=== PATIENT | female | born 1980 | race Caucasian/White ===

== ENCOUNTER 2018-01-22 21:30 | Emergency (ER) | payer OTHER ==
[~2018-01-22] VITALS: Ht 170.2 cm; Wt 68.3 kg
[2018-01-22 21:34] VITALS: Ht 170.2 cm; Wt 68.3 kg
[2018-01-22] MEDS ORDERED: LIDOCAINE HCL 2% VISC SOLN 20 ML UDC PO STA (21:47)
[2018-01-22] MEDS ORDERED: ALUMINUM/MAGNESIUM SUSP 30 ML UDC PO STA (21:47)
[2018-01-22 22:25] LABS: BASO % 0.3 %; BASO ABS # 0.03 K/uL (0-0.2); EOS % 6.5 %; EOS ABS # 0.59 K/uL (0-0.5); HEMATOCRIT 38.1 % (37-47); HEMOGLOBIN 12.9 g/dL (12.0-16.0); IG# 0.02 K/uL (0.00-0.02); LYMPH % 31.9 %; LYMPH ABS # 2.89 K/uL (1.2-3.4); MEAN CELL VOLUME 87.8 fL (80-100); MEAN CORPUSCULAR HEMOGLOBIN 29.7 pg (25-34); MEAN CORPUSCULAR HGB CONC 33.9 g/dl (32-36); MONO % 6.1 %; MONO ABS # 0.55 K/uL (0.11-0.59); NEUT ABS # 4.99 K/uL (1.4-6.5); PLATELET COUNT 249 K/uL (130-400); RED CELL DISTRIBUTION WIDTH CV 13.2 % (11.5-14.5); RED CELL DISTRIBUTION WIDTH SD 42.7 fL (36.4-46.3); WHITE BLOOD COUNT 9.07 K/uL (4.8-10.8)
[2018-01-22] MEDS ORDERED: SUCRALFATE 1 GM/10 ML UDC PO STA (22:44)
[2018-01-22 22:45] LABS: ALBUMIN 3.3 gm/dl (3.4-5.0); CREATININE 0.93 mg/dl (0.60-1.20); POTASSIUM 3.7 mmol/L (3.5-5.1)
[2018-01-22] MEDS ORDERED: FAMOTIDINE 20MG/5ML IV PUSH IV STA ×2 (22:51)
[2018-01-22 22:56] LABS: TOTAL PROTEIN 6.9 gm/dl (6.4-8.2)
[2018-01-22] MEDS ORDERED: MISCCAP80 PO (23:01)
[2018-01-22] MEDS ORDERED: APPLE CIDER VINEGAR PO (23:01)
[2018-01-22] MEDS ORDERED: SPIR25TA PO (23:01)
[2018-01-22] MEDS ORDERED: IBUP-1050 PO (23:01)
[2018-01-22] MEDS ORDERED: BCPILLS PO (23:01)
[2018-01-22] MEDS ORDERED: ONDA4TAB46 SL (23:01)
[2018-01-22 23:03] LABS: PTT PATIENT 23.1 SECONDS (21.0-31.0)
[2018-01-23] MEDS ORDERED: PANTOprazole SOD 40 MG TAB PO STA (00:01)
[2018-01-23] MEDS ORDERED: PANT40TA PO (00:11)
[2018-01-23 00:21] LABS: HEP C IGG 13 YRS+OLDER_RFLX NEG (NEG)
--- NOTE | 2018-01-23 00:49 | EMERGENCY ROOM VISIT NOTE ---
History First contact with patient: 21:37 Chief Complaint: ABDOMINAL PAIN Stated Complaint: ABDOMINAL PAIN Nursing Triage Summary: pt ambulatory to triage, states "abdominal pain, right in between where my ribs split. i've been to the doctor, they checked out my gall bladder. friday i had the same thing twice." pt associates n/v/d and headache. pt c/o upper abdominal pain radiating to the right. unable to get temp in triage History of Present Illness The patient is a 37 year old female who presents to the Emergency Room with complaints of intermittent epigastric pain that occasionally radiates to her right upper quadrant for the past 2 weeks with occasional nausea and vomiting and diarrhea. Symptoms are not constant. Patient states about a month ago she started paleo diet. 2 weeks later the symptoms started. Patient has a couple tablespoons of apple cider vinegar daily. She occasionally drinks coffee. Prior to her new diet, she used to eat carbohydrates and less acidic foods. No recent antibiotics. No well water. She saw the family care doctor the other day and had an ultrasound of her liver and gallbladder that was normal per patient. Patient denies chest pain, dyspnea, fever, chills, cough, congestion, blood or black in the stool or emesis, urinary symptoms, night sweats, weight loss. No recent travel. No alcohol use. No drug use. She does not smoke. No family history of inflammatory bowel disease. No new stressors. Patient kept a log of her diet for the past week and I did review this. Review of Systems An 10 system review of systems was completed with positives and pertinent negatives listed in the HPI. Past Medical/Surgical History None Social History Smoking Status: Never Smoker Smokeless Tobacco Use: No Alcohol Use: none Drug Use: none Marital Status: Housing Status: lives with family Occupation Status: employed Current/Historical Medications Scheduled Control Pills ( Control Pills), 1 TAB PO DAILY Pantoprazole (Protonix), 40 MG PO DAILY Probiotic Product (Probiotic), 1 CAP PO DAILY Spironolactone (Aldactone), 1 TAB PO DAILY [Apple Cider Vinegar], 1 DOSE PO DAILY Scheduled PRN Ibuprofen (Advil), 600-800 MG PO Q6H PRN for Pain Ondansetron Hcl (Zofran), 1 TAB SL Q8 PRN for Nausea Physical Exam Vital Signs Date Time Temp Pulse Resp B/P (MAP) Pulse Ox O2 Delivery O2 Flow Rate FiO2 01/22/18 22:44 37.3 72 18 113/76 99 Room Air 01/22/18 21:34 80 18 109/73 99 Room Air Physical Exam VITALS: Vitals are noted on the nurse's note and reviewed by myself. Vital signs stable. GENERAL: Pleasant female, in no acute distress, nondiaphoretic, well-developed well-nourished. SKIN: The skin was without rashes, erythema, edema, or bruising. There is no tenting of the skin. Capillary reflex less than 2 seconds. HEAD: Normocephalic atraumatic. EARS: External auditory canals clear, tympanic membranes pearly rodriguez without erythema or effusion bilaterally. EYES: Pupils equal round and reactive to light and accommodation. Conjunctivae without injection, sclerae without icterus. Extraocular movements intact. NOSE: Patent, turbinates without inflammation or discharge. MOUTH: Mucous membranes moist. Pharynx without erythema or exudate. Uvula midline. Airway patent. Tongue does not deviate. NECK: Supple without nuchal rigidity. No lymphadenopathy. No thyromegaly. Cervical spine is nontender. No JVD. HEART: Regular rate and rhythm without murmurs gallops or rubs. LUNGS: Clear to auscultation bilaterally without wheezes, rales or rhonchi. No retractions or accessory muscle use. ABDOMEN: Positive bowel sounds x 4. Normal tympanic percussion. Soft, minimally tender epigastric region, without masses or organomegaly. Valente sign negative. No guarding or rebound tenderness. No CVA tenderness MUSCULOSKELETAL: No muscle atrophy, erythema, or edema noted. NEURO: Patient was alert and oriented to person place and time. Normal sensation to light and sharp touch. No focal neurological deficits. Medical Decision & Procedures Laboratory Results 01/22/18 22:06 Red Blood Count 4.34, Mean Corpuscular Volume 87.8, Mean Corpuscular Hemoglobin 29.7, Mean Corpuscular Hemoglobin Concent 33.9, Mean Platelet Volume 12.0, Neutrophils (%) (Auto) 55.0, Lymphocytes (%) (Auto) 31.9, Monocytes (%) (Auto) 6.1, Eosinophils (%) (Auto) 6.5, Basophils (%) (Auto) 0.3, Neutrophils # (Auto) 4.99, Lymphocytes # (Auto) 2.89, Monocytes # (Auto) 0.55, Eosinophils # (Auto) 0.59, Basophils # (Auto) 0.03 01/22/18 22:06 Test 01/22/18 22:06 01/22/18 22:07 White Blood Count 9.07 K/uL (4.8-10.8) Red Blood Count 4.34 M/uL (4.2-5.4) Hemoglobin 12.9 g/dL (12.0-16.0) Hematocrit 38.1 % (37-47) Mean Corpuscular Volume 87.8 fL (80-100) Mean Corpuscular Hemoglobin 29.7 pg (25-34) Mean Corpuscular Hemoglobin Concent 33.9 g/dl (32-36) Platelet Count 249 K/uL (130-400) Mean Platelet Volume 12.0 fL (7.4-10.4) Neutrophils (%) (Auto) 55.0 % Lymphocytes (%) (Auto) 31.9 % Monocytes (%) (Auto) 6.1 % Eosinophils (%) (Auto) 6.5 % Basophils (%) (Auto) 0.3 % Neutrophils # (Auto) 4.99 K/uL (1.4-6.5) Lymphocytes # (Auto) 2.89 K/uL (1.2-3.4) Monocytes # (Auto) 0.55 K/uL (0.11-0.59) Eosinophils # (Auto) 0.59 K/uL (0-0.5) Basophils # (Auto) 0.03 K/uL (0-0.2) RDW Standard Deviation 42.7 fL (36.4-46.3) RDW Coefficient of Variation 13.2 % (11.5-14.5) Immature Granulocyte % (Auto) 0.2 % Immature Granulocyte # (Auto) 0.02 K/uL (0.00-0.02) Prothrombin Time 10.0 SECONDS (9.0-12.0) Prothromb Time International Ratio 1.0 (0.9-1.1) Activated Partial Thromboplast Time 23.1 SECONDS (21.0-31.0) Partial Thromboplastin Ratio 0.9 Anion Gap 7.0 mmol/L (3-11) Est Creatinine Clear Calc Drug Dose 82.1 ml/min Estimated GFR () 92.3 Estimated GFR (Non- 79.6 BUN/Creatinine Ratio 14.3 (10-20) Calcium Level 9.0 mg/dl (8.5-10.1) Magnesium Level 1.8 mg/dl (1.8-2.4) Total Bilirubin 0.5 mg/dl (0.2-1) Direct Bilirubin 0.1 mg/dl (0-0.2) Aspartate Amino Transf (AST/SGOT) 50 U/L (15-37) Alanine Aminotransferase (ALT/SGPT) 101 U/L (12-78) Alkaline Phosphatase 53 U/L (45-117) Total Protein 6.9 gm/dl (6.4-8.2) Albumin 3.3 gm/dl (3.4-5.0) Lipase 143 U/L (73-393) Thyroid Stimulating Hormone (TSH) 2.990 uIu/ml (0.300-4.500) Human Chorionic Gonadotropin, Qual NEG (NEG) Hepatitis B Surface Antigen NEG (NEG) Hepatitis C Antibody NEG (NEG) Urine Color YELLOW Urine Appearance CLEAR (CLEAR) Urine pH 8.5 (4.5-7.5) Urine Specific [place] 1.021 (1.000-1.030) Urine Protein NEG (NEG) Urine Glucose (UA) NEG (NEG) Urine Ketones NEG (NEG) Urine Occult Blood NEG (NEG) Urine Nitrite NEG (NEG) Urine Bilirubin NEG (NEG) Urine Urobilinogen NEG (NEG) Urine Leukocyte Esterase TRACE (NEG) Urine WBC (Auto) 1-5 /hpf (0-5) Urine RBC (Auto) 0-4 /hpf (0-4) Urine Hyaline Casts (Auto) 1-5 /lpf (0-5) Urine Epithelial Cells (Auto) >30 /lpf (0-5) Urine Bacteria (Auto) NEG (NEG) Date/Time Source Procedure Growth Status 01/22/18 23:02 Stool C.difficile Toxin B Gene (PCR) - Final No C. difficile toxin B gene detected Complete Medications Administered Medications (Trade) Dose Ordered Sig/Yajaira Route Start Time Stop Time Status Last Admin Dose Admin Lidocaine HCl (Viscous Lidocaine 2% Soln) 10 ml NOW STAT PO 01/22/18 21:47 01/22/18 21:50 DC 01/22/18 21:47 10 ML Al Hydroxide/Mg Hydroxide (Maalox Susp) 30 ml NOW STAT PO 01/22/18 21:47 01/22/18 21:50 DC 01/22/18 21:47 30 ML Sucralfate (Carafate Susp) 1 gm NOW STAT PO 01/22/18 22:44 01/22/18 22:45 DC 01/22/18 22:44 1 GM Famotidine (Pepcid 20mg Iv Push) 20 mg ONE STAT IV 01/22/18 22:51 01/22/18 22:52 DC 01/22/18 22:51 20 MG Pantoprazole Sodium (Protonix Tab) 40 mg NOW STAT PO 01/23/18 00:01 01/23/18 00:02 DC 01/23/18 00:08 40 MG ED Course Prior records/ancillary studies reviewed. Triage Nursing notes reviewed. Additional history obtained from family. The patient's history was concerning for abdominal pain. Differential diagnosis: Etiologies such as reflux, stool infection, appendicitis, diverticulitis, PUD, biliary pathology, UTI, pancreatitis, obstruction, mesenteric ischemia, aortic pathology, infections, inflammatory bowel disease, renal colic, as well as others were entertained. Physical examination findings: As above. ER treatment provided: GI cocktail, Carafate, Protonix, Pepcid On reassessment the patient felt better. Diagnostics interpreted by me: The labs revealed negative hCG. Stool culture pending. Mild LFT elevation and hepatitis panel sent neg [facility] Imaging studies: Ultrasound was reviewed from [place] from yesterday that showed a normal right upper quadrant ultrasound I obtain the records from [place] and did review them. Exam and history seem consistent with reflux. Patient symptoms started shortly after changing her diet to more acidic foods and high proteins. She also has been drinking apple cider vinegar. Patient felt better after being medicated as above. She is advised to take the Protonix for the next 2 weeks and Maalox and Zantac for breakthrough symptoms. She is advised to avoid acidic foods. She is advised if symptoms persist to follow-up with GI for further evaluation and treatment or the family care doctor in a few days or here in the ER sooner for abdominal pain, fevers, vomiting, black or blood in the stool, worsening signs or symptoms or as needed. By the evaluation outlined above emergent etiologies such as appendicitis, diverticulitis, PUD, biliary pathology, UTI, pancreatitis, obstruction, mesenteric ischemia, aortic pathology, infections, inflammatory bowel disease, renal colic, as well as others were deemed relatively unlikely. The pt informed about the findings as listed above. All questions were answered and pleased with the treatment. Return instructions were outlined and the patient was discharged in stable condition. Outpatient prescription management: Protonix Referral: The patient was referred back to their primary care physician and/or gastroneurology for follow-up in 2 to 3 days for a recheck of the current condition. Case reviewed with my attending The chart was completed utilizing [employer] Speech voice recognition software. Grammatical errors, random word insertions, pronoun errors, and incomplete sentences are an occassional consequence of this system due to software limitations, ambient noise, and hardware issues. Any formal questions or concerns about the content, text, or information contained within the body of this dictation should be directly addressed to the physician professional nursing assistant for clarification. Medical Decision As above Medication Reconcilliation Current Medication List: was personally reviewed by me Blood Pressure Screening Patient's blood pressure: Normal blood pressure Impression Primary Impression: Epigastric abdominal pain Departure Information Dispostion Home / Self-Care Condition GOOD Prescriptions Pantoprazole (Protonix) 40 Mg Tab 40 MG PO DAILY for 14 Days, #14 TAB Prov: Petrona Loomis .GRACIELA 01/23/18 Referrals Satinder Gee, [place] (PCP) Patient Instructions My [facility] Additional Instructions Protonix 40 m tablet daily for next 2 weeks. Take this on an empty stomach. Try Maalox or Zantac for breakthrough symptoms for reflux. Avoid large meals. Avoid acidic foods. Rest and drink plenty of fluids as tolerated. Continue current medications. Avoid strenuous activities and anything that worsens your pain. Resume normal activities once your symptoms resolve. Return to the ER immediately for worsening or persistent chest pain, abdominal pain, black or blood in your stools, vomiting, fevers, chest pains, difficulty breathing, worsening of your condition, or as needed. Follow up with your primary physician in 2-3 days for a recheck of your current condition. If your symptoms do not resolve after taking the Protonix then recommend seeing a tape librarian for further evaluation and treatment.
[2018-01-23 01:30] VITALS: BP 93/59; PULSE 60; TEMP 37; O2SAT 96
[2018-01-25 21:56] LABS: HEPATITIS A IGM TC 51813E NON-REACTIVE (NON-REACTIVE); HEPATITIS B CORE IGM TC51854R NON-REACTIVE (NON-REACTIVE)
== END 2018-01-23 01:31 | disposition home or self-care (01) ==
LOC: C.EDB 21:33
DX: R10.13 Epigastric pain (principal); R10.11 Right upper quadrant pain; R11.0 Nausea; R19.7 Diarrhea, unspecified; Z79.3 Long term (current) use of hormonal contraceptives; Z79.899 Other long term (current) drug therapy

== ENCOUNTER → 2018-03-13 | Day surgery (SDC) | payer OTHER ==
[2018-03-03 16:19] VITALS: Ht 170.2 cm; Wt 68.2 kg
[~2018-03-13] VITALS: Ht 170.2 cm; Wt 68.2 kg
[~2018-03-13] MED LIST: APPLE CIDER VINEGAR PO; BCPILLS PO; FENTANYL CITRATE INJ 50 MCG/1 ML 2 ML VIAL ONE; IBUP-1050 PO; LIDOCAINE HCL 2% 2 ML VIAL (20MG/ML) ONE; MIDAZOLAM HCL 1 MG/ML 2ML VIAL ONE; MISCCAP80 PO; ONDA4TAB46 SL; PROPOFOL IV EMULSION 10 MG/ML 20 ML VIAL IV ONE; SODIUM CHLORIDE 0.9% 500ML 500 ML IV ONE; SPIR25TA PO
--- NOTE | 2018-03-13 13:00 | Endo History and Physical ---
History & Physical Date of Service: Mar 13, 2018. Chief Complaint: Abdominal pain, diarrhea Referring Physician: Dr. Gee History of Present Illness 37 yo CF who presents for EGD and colonoscopy secondary to abdominal pain and diarrhea. Past Surgical History Hx Cardiac Surgery: No Hx Internal Defibrillator: No Hx Pacemaker: No Hx Abdominal Surgery: No Hx of Implantable Prosthesis: No Hx Post-Op Nausea and Vomiting: No Hx Cancer Surgery: No Hx Thoracic Surgery: No Hx Orthopedic: No Hx Urinary Tract Surgery: No Family History None Social History Smoking Status: Never Smoker Hx Substance Use: No Hx Alcohol Use: Yes (rarely) Allergies Coded Allergies: No Known Allergies (Unverified , 03/13/18) Current Medications Reported Home Medications Medications Dose Route/Sig Max Daily Dose Days Date Category Zofran (Ondansetron HCl) Unknown Strength Tab 1 Tab SL Q8 PRN 01/22/18 Reported Advil (Ibuprofen) 200 Mg Tab 600-800 Mg PO Q6H PRN 01/22/18 Reported Probiotic (Probiotic Product) 1 Cap Cap 1 Cap PO DAILY 01/22/18 Reported Aldactone (Spironolactone) Unknown Strength Tab 1 Tab PO DAILY 01/22/18 Reported Control Pills (Miscellaneous) Tab 1 Tab PO DAILY 01/22/18 Reported Vital Signs Weight (Kilograms): 68.18 Height (Feet): 5 Height (Inches): 7 Date Time Temp Pulse Resp B/P (MAP) Pulse Ox O2 Delivery O2 Flow Rate FiO2 03/13/18 12:30 37 65 20 112/68 (83) 100 Room Air Physical Exam General Appearance: WD/WN, no apparent distress Respiratory/Chest: Auscultation: breath sounds normal Cardiovascular: Heart Auscultation: RRR Abdomen: Bowel Sounds: normal Inspection & Palpation: soft, non-distended, no tenderness, guarding & rebound Assessment and Plan Assessment: 37 yo CF who presents for EGD and colonoscopy secondary to abdominal pain and diarrhea. Plan: Proceed with EGD and colonoscopy.
--- NOTE | 2018-03-13 13:45 | GI REPORT ---
Patient Name: Luci Munoz Procedure Date: 03/13/2018 12:30 PM Date of : 1980 Admit Type: Outpatient Age: 37 Gender: Female Attending MD: Gregorio Enamroado DO Procedure: Colonoscopy Providers: Gregorio Enamorado DO Referring MD: Lila Farooq Indications: Generalized abdominal pain, Chronic diarrhea Medicines: Monitored Anesthesia Care Complications: No immediate complications. Estimated Blood Loss: Estimated blood loss: none. Procedure: Pre-Anesthesia Assessment: - Prior to the procedure, a History and Physical was performed, and patient medications and allergies were reviewed. The patient's tolerance of previous anesthesia was also reviewed. The risks and benefits of the procedure and the sedation options and risks were discussed with the patient. All questions were answered, and informed consent was obtained. Prior Anticoagulants: The patient has taken no previous anticoagulant or antiplatelet agents. ASA Grade Assessment: II - A patient with mild systemic disease. After reviewing the risks and benefits, the patient was deemed in satisfactory condition to undergo the procedure. After I obtained informed consent, the scope was passed under direct vision. Throughout the procedure, the patient's blood pressure, pulse, and oxygen saturations were monitored continuously. The Scope was introduced through the anus and advanced to the terminal ileum. The colonoscopy was performed without difficulty. The patient tolerated the procedure well. The quality of the bowel preparation was good. The terminal ileum, ileocecal valve, appendiceal orifice, and rectum were photographed. Findings: The perianal and digital rectal examinations were normal. The colon (entire examined portion) appeared normal. Several random biopsies were obtained with cold forceps for histology in the entire colon. Non-bleeding internal hemorrhoids were found during retroflexion. The hemorrhoids were small. Impression: - The entire examined colon is normal. - Non-bleeding internal hemorrhoids. - Several random biopsies were obtained in the entire colon. Recommendation: - Resume previous diet. - Continue present medications. - Repeat colonoscopy for surveillance based on pathology results. - Return to primary care physician as previously scheduled. Gregorio Enamorado DO 03/13/2018 1:45:15 PM This report has been signed electronically. Note Initiated On: 03/13/2018 12:30 PM Number of Addenda: 0 I attest to the content of the Intraoperative Record and orders documented therein, exceptions below {[id number]}
--- NOTE | 2018-03-13 13:47 | Discharge Instructions ---
Endoscopy Patient Instructions Date / Procedure(s) Performed Mar 13, 2018. Colonoscopy, EGD Allergy Information Coded Allergies: No Known Allergies (Unverified , 03/13/18) Discharge Date / Findings Mar 13, 2018. EGD: Gastric antrum biopsies, Duodenal biopsies Colonoscopy: Random colon biopsies, Internal hemorrhoids Medication Instructions OK to resume all medications today as prescribed Reported Home Medications Medications Dose Route/Sig Max Daily Dose Days Date Category Zofran (Ondansetron HCl) Unknown Strength Tab 1 Tab SL Q8 PRN 01/22/18 Reported Advil (Ibuprofen) 200 Mg Tab 600-800 Mg PO Q6H PRN 01/22/18 Reported Probiotic (Probiotic Product) 1 Cap Cap 1 Cap PO DAILY 01/22/18 Reported Aldactone (Spironolactone) Unknown Strength Tab 1 Tab PO DAILY 01/22/18 Reported Control Pills (Miscellaneous) Tab 1 Tab PO DAILY 01/22/18 Reported Provider Instructions Activity Restrictions - No exercising or heavy lifting for 24 hours. - Do not drink alcohol the day of the procedure. - Do not drive a car or operate machinery until the day after the procedure. - Do not make any important decisions or sign important papers in 24 hours after the procedure. Following Day: - Return to full activity which may include returning to work/school. Diet Start your diet with liquids and light foods (jello, soup, juice, toast). Then eat your usual diet if not nauseated. Treatment For Common After Affects For mild abdominal pain, bloating, or excessive gas: - Rest - Eat lightly - Lie on right side Follow-Up Information Follow-up with Dr. Gee as scheduled Anesthesia Information What You Should Know You have had a procedure that required some medicine to reduce anxiety and discomfort. This treatment is called moderate sedation. After receiving the treatment, you may be sleepy, but you will be able to breathe on your own. The effects of the treatment may last for several hours. Follow these instructions along with Activity/Diet recommendations noted above: * Do NOT do anything where dizziness or clumsiness would be dangerous. * Rest quietly at home today, then you can be up and about tomorrow. * Have a responsible person stay with you the rest of today. * You may have had an I.V. today. If so, you may take the dressing off later today. Recommendations Call your doctor if: * Trouble breathing * Continuous vomiting for more than 24 hours * Temperature above 101 degrees * Severe abdominal pain or bloating * Pain not relieved by pain medicine ordered * There is increased drainage or redness from any incision * A large amount of rectal bleeding greater than 2-3 tablespoons. (If you had a polyp/s removed or have hemorrhoids, a small amount of blood - from the rectum is to be expected.) * You have any unanswered questions or concerns. IN THE EVENT OF A SERIOUS EMERGENCY, GO TO THE NEAREST EMERGENCY ROOM Your discharge instructions were prepared by provider Gregorio Enamorado. Patient Instructions Signature Page Luci Munoz Patient (or Guardian) Signature/Date: I have read and understand the instructions given to me by my caregivers. Caregiver/RN/Doctor Signature/Date: The above-named patient and/or guardian has received patient instructions on this date. + Original Patient Signature Page (only) stays with chart. Please make copy for patient.
--- NOTE | 2018-03-13 13:47 | GI REPORT ---
Patient Name: Luci Munoz Procedure Date: 03/13/2018 12:30 PM Date of : 1980 Admit Type: Outpatient Age: 37 Gender: Female Attending MD: Gregorio Enamorado DO Procedure: Upper GI endoscopy Providers: Gregorio Enamorado DO Referring MD: Lila Farooq Indications: Generalized abdominal pain, Diarrhea Medicines: Monitored Anesthesia Care Complications: No immediate complications. Estimated Blood Loss: Estimated blood loss: none. Procedure: Pre-Anesthesia Assessment: - Prior to the procedure, a History and Physical was performed, and patient medications and allergies were reviewed. The patient's tolerance of previous anesthesia was also reviewed. The risks and benefits of the procedure and the sedation options and risks were discussed with the patient. All questions were answered, and informed consent was obtained. Prior Anticoagulants: The patient has taken no previous anticoagulant or antiplatelet agents. ASA Grade Assessment: II - A patient with mild systemic disease. After reviewing the risks and benefits, the patient was deemed in satisfactory condition to undergo the procedure. After obtaining informed consent, the endoscope was passed under direct vision. Throughout the procedure, the patient's blood pressure, pulse, and oxygen saturations were monitored continuously. The On-site loaner was introduced through the mouth, and advanced to the second part of duodenum. The upper GI endoscopy was accomplished without difficulty. The patient tolerated the procedure well. Findings: The esophagus was normal. The entire examined stomach was normal. Biopsies were taken with a cold forceps for Helicobacter pylori testing. The examined duodenum was normal. Biopsies for histology were taken with a cold forceps for evaluation of celiac disease. Impression: - Normal esophagus. - Normal stomach. Biopsied. - Normal examined duodenum. Biopsied. Recommendation: - Resume previous diet. - Continue present medications. - Await pathology results. - Return to primary care physician as previously scheduled. Gregorio Enamorado DO 03/13/2018 1:46:45 PM This report has been signed electronically. Note Initiated On: 03/13/2018 12:30 PM Number of Addenda: 0 I attest to the content of the Intraoperative Record and orders documented therein, exceptions below {[id number]}
--- NOTE | 2018-03-13 13:57 | Anesthesiology Progress Note ---
Anesthesia Post Op Note Date & Time Mar 13, 2018 at 13:57 Vital Signs Pain Intensity: 0 Vital Signs Past 12 Hours Date Time Temp Pulse Resp B/P (MAP) Pulse Ox O2 Delivery O2 Flow Rate FiO2 03/13/18 13:42 80 20 97/55 (69) 98 Room Air 03/13/18 12:30 37 65 20 112/68 (83) 100 Room Air Notes Mental Status: alert / awake / arousable, participated in evaluation Pt Amnestic to Procedure: Yes Nausea / Vomiting: adequately controlled Pain: adequately controlled Airway Patency, RR, SpO2: stable & adequate BP & HR: stable & adequate Hydration State: stable & adequate Anesthetic Complications: no major complications apparent
[2018-03-13 14:15] VITALS: BP 104/79; PULSE 57; O2SAT 100
== END | disposition home or self-care (01) ==
LOC: C.GI 11:24
PROVIDERS: ATTEND Internal Medicine
DX: R10.84 Generalized abdominal pain (principal); K52.9 Noninfective gastroenteritis and colitis, unspecified; K64.8 Other hemorrhoids; Z79.3 Long term (current) use of hormonal contraceptives